=== PATIENT | female | born 1970 | race Two or more races ===

== ENCOUNTER 2019-12-01 11:10 | Inpatient (IN) | payer MEDICAID, OTHER ==
[~2019-12-01] VITALS: Ht 154.9 cm; Wt 74.5 kg
[2019-12-01] MEDS ORDERED: SODIUM CHLORIDE 0.9% 1,000 ML IV ONE (11:32)
[2019-12-01] MEDS ORDERED: ASPirin 81 mg TAB PO ONE (11:45)
[2019-12-01] MEDS ORDERED: NITROGLYCERIN 0.4 MG SL TAB SL ONE (11:45)
[2019-12-01 13:51] LABS: Basophils # (auto) 0 uL; Eosinophils # (auto) 0.3 uL; Monocytes # (auto) 0.5 uL; Nucleated Red Blood Cells % 0.1 %
[2019-12-01 13:52] LABS: Basophils % (auto) 0.4 % (0.0-2.0); Eosinophils % (auto) 3.6 % (0.0-7.0); Hematocrit 42.4 % (36.0-46.0); Hemoglobin 13.9 g/dL (12.2-16.2); Lymphocytes # (auto) 2.7 uL; Lymphocytes % (auto) 36.3 % (10.0-50.0); Mean Corpuscular Hemoglobin 26.4 pg (28.0-32.0); Mean Corpuscular Hgb Conc. 32.9 g/dL (32.0-36.0); Mean Corpuscular Volume 80.4 fL (80.0-100.0); Monocytes % (auto) 6.7 % (0.0-12.0); Neutrophils # (auto) 3.9 uL; Platelet Count (auto) 296 10^3/uL (140-450); Red Blood Cells 5.27 10^6/uL (4.0-5.20); Red Cell Distribution Width 15.7 % (11.8-14.3); White Blood Cell 7.4 10^3/uL (4.4-10.8)
[2019-12-01 14:10] LABS: Albumin 3.8 g/dL (3.4-5.0); Calcium 8.6 mg/dL (8.5-10.1); Potassium 3.7 mmol/L (3.5-5.1)
[2019-12-01 14:13] LABS: BUN/Creatinine Ratio 15.4
[2019-12-01 14:17] LABS: Bilirubin, Total 0.3 mg/dL (0.2-1.0); Total Protein 8.5 g/dL (6.4-8.2)
[2019-12-01] MEDS ORDERED: ENOXAPARIN SOD 80 MG/0.8ML SYRINGE SC ONE (14:45)
[2019-12-01] MEDS ORDERED: LACTULOSE 20Gm/30ML SOLN PO PRN (18:45)
[2019-12-01] MEDS ORDERED: ACETAMINOPHEN 500 MG TAB PO PRN (18:45)
[2019-12-01] MEDS ORDERED: NITROGLYCERIN 0.4 MG SL TAB SL PRN (18:45)
[2019-12-01] MEDS ORDERED: MORPHINE SULF INJ 2 MG/ML SYRINGE 1ML IV PRN (18:45)
[2019-12-01] MEDS ORDERED: TEMAZEPAM 15 MG CAP PO PRN (18:45)
[2019-12-01] MEDS ORDERED: DEXTROSE (50%) 50ML SYRG IV PRN (18:45)
[2019-12-01] MEDS ORDERED: PROMETHAZINE HCL 25 MG/ML 1ML IV PRN (18:45)
[2019-12-01] MEDS ORDERED: traMADol HCL 50 MG TAB PO PRN (18:45)
[2019-12-01] MEDS ORDERED: LABETALOL HCL 5 MG/ML ML 20ML VIAL IV PRN (18:45)
[2019-12-01] MEDS: SODIUM CHLORIDE 0.9% 1,000 ML IV SCH (18:47)
--- NOTE | 2019-12-01 20:15 | NUR ---
received pt from er nurse poc reviewed
--- NOTE | 2019-12-01 21:35 | NUR ---
family at bedside poc reviewed, pt needs iranian interpretor
[2019-12-01] MEDS: ATORVASTATIN 20 MG TAB PO SCH (21:54)
[2019-12-01] MEDS: METOPROLOL TARTRATE 25 MG TAB PO SCH (21:58)
[2019-12-01] MEDS ORDERED: METF850T PO (21:58)
[2019-12-01 22:00] VITALS: BP 118/68
[2019-12-01] MEDS: ENOXAPARIN SOD 80 MG/0.8ML SYRINGE SC SCH (22:00)
[2019-12-01] MEDS: InsuLIN REG 1unit/0.01ml Soln (100units/ml) SC SCH (22:00)
[2019-12-01] MEDS: ACCU-CHEK COMFORT CURVE STRIP VI SCH (22:23)
--- NOTE | 2019-12-02 01:00 | NUR ---
resting with eyes closed resp even and unlabored
--- NOTE | 2019-12-02 04:08 | NUR ---
resting comfortable with eyes closed call light within reach
[2019-12-02 05:30] VITALS: BP 107/66
[2019-12-02] MEDS: ACCU-CHEK COMFORT CURVE STRIP VI SCH ×4 (06:34→21:34)
[2019-12-02] MEDS: InsuLIN REG 1unit/0.01ml Soln (100units/ml) SC SCH ×4 (06:36→21:34)
--- NOTE | 2019-12-02 07:35 | NUR ---
REPORT GIVEN TO AM NURSE POC REVIEWED
--- NOTE | 2019-12-02 08:00 | NUR ---
AWAKE ALERT ORIENTED TIMES 4 DENIES ANY CHEST PAIN AT THIS TIME.
[2019-12-02] MEDS: SODIUM CHLORIDE 0.9% 1,000 ML IV SCH ×2 (08:06→21:30)
[2019-12-02 08:24] LABS: Urine Bacteria FEW /hpf (None Seen); Urine Blood Negative /uL (Negative); Urine Specific Gravity 1.012 (1.001-1.035); Urine WBC <1 /hpf (0 - 5)
[2019-12-02 08:39] LABS: Alcohol, Urine < 3.0 mg/dL (0-5); Amphetamine Screen, Urine NEGATIVE (NEGATIVE); Barbiturate Scree,Urine NEGATIVE (NEGATIVE); Benzodiazephine Screen, Urine NEGATIVE (NEGATIVE); Cannabinoid Screen, Urine NEGATIVE (NEGATIVE); Cocaine Screen, Urine NEGATIVE (NEGATIVE); Opiate Scree,Urine NEGATIVE (NEGATIVE); Phencyclidine Screen, Urine NEGATIVE (NEGATIVE)
[2019-12-02 08:55] LABS: Cholesterol 135 mg/dL (< 200); HDL Cholesterol 49 mg/dL (40-59); LDL Cholesterol 82 mg/dL (< 100); Triglycerides 88 mg/dL (< 150)
[2019-12-02] MEDS: METOPROLOL TARTRATE 25 MG TAB PO SCH ×2 (08:58→21:34)
[2019-12-02 09:00] VITALS: BP 111/65
[2019-12-02] MEDS: NITROGLYCERIN 0.2MG/HR TOPICAL PATCH TD SCH (09:51)
[2019-12-02] MEDS: ASPirin 81 mg TAB PO SCH (09:51)
--- NOTE | 2019-12-02 10:06 | NUR ---
PATIENT STATED FEELING SIMILAR SYMPTOMS THAT BROUGHT HER TO THE HOSPITAL YESTERDAY. SOME NUMBNESS TO RIGHT LOWER EXTREMITY AND PALPITATION. VITAL SIGNS STABLE. FAMILY AT BEDSIDE.
[2019-12-02] MEDS: ENOXAPARIN SOD 80 MG/0.8ML SYRINGE SC SCH ×2 (10:47→21:34)
--- NOTE | 2019-12-02 11:04 | NUR ---
DR Dash AVILEZ AT BEDSIDE DISCUSSED PLAN OF CARE WITH FAMILY AND PATIENT. NEUROLOGY CONSULT ORDERED WELL ECHOCARDIOGRAM.
[2019-12-02 13:00] VITALS: BP 143/71
--- NOTE | 2019-12-02 13:20 | NUR ---
DENIES ANY PAIN AT THIS. FAMILY AT BEDSIDE. AWAITING NEUROLOGY CONSULT.
[2019-12-02 17:59] VITALS: BP 114/74
--- NOTE | 2019-12-02 19:44 | NUR ---
PATIENT COMPLAINING OF CHEST PAIN PATIENT STATES PAIN CAME ON SUDDENLY. PAIN AT TIME IS A 4/10. PATIENT PLACED ON SUPPLEMENTAL OXYGEN. PATIENT STATES AN IMMEDIATE DECREASE IN PAIN. PATIENT ALSO GIVEN PAIN MEDICINE AND AN EKG PERFORMED. EKG SHOWS NORMAL SINUS RHYTHM AND PATIENT STATES PAIN IS GONE. WILL CONTINUE TO MONITOR. Addendum: 12/02/19 at 2052 by MYRNA ESCOBAR RN HOSPITALIST NOTIFIED. TROPONIN NEGATIVE. EKG NORMAL. SPRAY DRIER ON BOARD. PATIENT'S VITALS AT TIME OF PAIN WAS BP 133/79, HR 87, RR 16, TEMP 98.8. NO NEW ORDERS AT THIS TIME. WILL CONTINUE TO MONITOR.
--- NOTE | 2019-12-02 20:00 | NUR ---
Opening Shift Note Assumed care of patient, awake and alert. No S/S of distress/SOB or pain. Instructed on POC and to call for assist PRN, will continue to monitor for changes Q1hr and PRN.
[2019-12-02] MEDS ORDERED: LORazepam 2MG/ML-1ML VIAL IV PRN (20:30)
[2019-12-02] MEDS: ATORVASTATIN 20 MG TAB PO SCH (21:33)
[2019-12-02 22:51] VITALS: BP 126/66
--- NOTE | 2019-12-02 23:46 | NUR ---
MD CRUZ AT BEDSIDE
[2019-12-03 05:00] VITALS: BP 103/58
[2019-12-03] MEDS: ACCU-CHEK COMFORT CURVE STRIP VI SCH ×4 (06:18→22:06)
[2019-12-03] MEDS: InsuLIN REG 1unit/0.01ml Soln (100units/ml) SC SCH ×4 (06:18→22:06)
[2019-12-03] MEDS: SODIUM CHLORIDE 0.9% 1,000 ML IV SCH ×2 (07:45→23:51)
[2019-12-03 09:00] VITALS: BP 116/71
[2019-12-03] MEDS: ASPirin 81 mg TAB PO SCH (10:51)
[2019-12-03] MEDS: NITROGLYCERIN 0.2MG/HR TOPICAL PATCH TD SCH (10:51)
[2019-12-03] MEDS: ENOXAPARIN SOD 80 MG/0.8ML SYRINGE SC SCH ×2 (10:52→22:06)
[2019-12-03] MEDS: METOPROLOL TARTRATE 25 MG TAB PO SCH ×2 (10:52→22:00)
--- NOTE | 2019-12-03 12:12 | NUR ---
EEG- Electroencephalogram completed on 12/03/2019.
[2019-12-03 13:00] VITALS: BP 128/66
[2019-12-03 17:00] VITALS: BP 104/58
--- NOTE | 2019-12-03 18:18 | NUR ---
Cardio at bedside Bueno at bedside, aware of patient's status. Awaiting cardiolite tomorrow. No new orders received. Cont care
--- NOTE | 2019-12-03 19:00 | NUR ---
Patient care endorsed endorsed care to [place]. Patient resting comfortably in bed in no acute distress. Family at bedside. Call light within reach
[2019-12-03 21:36] VITALS: BP 112/59
[2019-12-03] MEDS: ATORVASTATIN 20 MG TAB PO SCH (22:05)
--- NOTE | 2019-12-04 04:23 | NUR ---
IV insertion IV access obtained, via clean sterile technique by inserting 22 gauge catheter at RIGHT FOREARM after 1 attempt(s). IV secured properly. No trauma to site. Patient tolerated well.
[2019-12-04 05:04] VITALS: BP 101/51
[2019-12-04] MEDS: ACCU-CHEK COMFORT CURVE STRIP VI SCH ×4 (06:14→22:30)
[2019-12-04] MEDS: InsuLIN REG 1unit/0.01ml Soln (100units/ml) SC SCH ×4 (06:14→22:27)
--- NOTE | 2019-12-04 07:35 | NUR ---
Opening Shift Note Assumed care of patient, awake and alert. No S/S of distress/SOB or chest pain reported at this time. Instructed on POC and to call for assist PRN, call light within reach, will continue to monitor for changes Q1hr and PRN.
--- NOTE | 2019-12-04 07:37 | NUR ---
CHEST PAIN PT COMPLAINING OF CHEST PAIN 06/20 RADIATING TO JAW, EKG DONE SHOWING SINUS RHYTHM, BP 154/95MMHG, HR 108, RR 20, NITROGLYCERIN SUBLINGUAL GIVEN, WILL CONTINUE TO MONITOR. Addendum: 12/04/19 at 1952 by Roseanne Tate RN WRONG TIME 1936 NOTE.
[2019-12-04 08:00] VITALS: BP 125/65
[2019-12-04] MEDS ORDERED: ADENOSINE 60 MG in GIVE UN-DILUTED 0 ML IV STA (08:29)
--- NOTE | 2019-12-04 09:15 | NUR ---
PT OFF UNIT/STRESS TEST PT TAKEN VIA WHEELCHAIR, NO DISTRESS NOTED AT THIS TIME, IV PATENT TO RIGHT AND LEFT FA
[2019-12-04 09:21] VITALS: BP 132/80
[2019-12-04] MEDS: ASPirin 81 mg TAB PO SCH (11:19)
[2019-12-04] MEDS: METOPROLOL TARTRATE 25 MG TAB PO SCH ×2 (11:19→22:29)
[2019-12-04] MEDS: ENOXAPARIN SOD 80 MG/0.8ML SYRINGE SC SCH ×2 (11:20→22:27)
[2019-12-04] MEDS: NITROGLYCERIN 0.2MG/HR TOPICAL PATCH TD SCH (11:20)
[2019-12-04 12:00] VITALS: BP 124/63
[2019-12-04] MEDS: SODIUM CHLORIDE 0.9% 1,000 ML IV SCH (13:11)
--- NOTE | 2019-12-04 13:30 | NUR ---
IV removal to right FA IV DC'd with clean sterile technique, catheter fully intact. Pressure dressing applied to site. Patient tolerated well.
[2019-12-04 16:55] VITALS: BP 113/66
--- NOTE | 2019-12-04 19:37 | NUR ---
CHEST PAIN PT COMPLAINING OF CHEST PAIN 9/10 RADIATING TO JAW, EKG DONE SHOWING SINUS RHYTHM, BP 154/95MMHG, HR 108, RR 20, NITROGLYCERIN SUBLINGUAL GIVEN, WILL CONTINUE TO MONITOR.
--- NOTE | 2019-12-04 19:54 | NUR ---
PT STATED NO CHEST PAIN AT THIS TIME BP 149/85MMHG, HR 92, O2 SAT 98%. WILL CONTINUE TO MONITOR.
[2019-12-04 22:00] VITALS: BP 124/68
[2019-12-04] MEDS: ATORVASTATIN 20 MG TAB PO SCH (22:27)
--- NOTE | 2019-12-04 23:55 | NUR ---
pt seen by Dr. Ganga Bueno, pt made aware pt will be scheduled for [facility] on Wednesday, pt verbalized understanding.
[2019-12-05 05:00] VITALS: BP 114/58
[2019-12-05] MEDS: InsuLIN REG 1unit/0.01ml Soln (100units/ml) SC SCH ×5 (06:28→21:58)
[2019-12-05] MEDS: ACCU-CHEK COMFORT CURVE STRIP VI SCH ×5 (06:28→21:59)
--- NOTE | 2019-12-05 07:09 | NUR ---
Opening Shift Note Assumed care of patient, awake, alert and oriented X 4. No S/S of distress/SOB or pain. Bed is in lowest position, locked, with 2 side rails up, and call moore is within reach. Instructed on POC and to call for assist PRN, will continue to monitor for changes Q1hr and PRN
[2019-12-05 08:00] VITALS: BP 111/66
[2019-12-05] MEDS: ENOXAPARIN SOD 80 MG/0.8ML SYRINGE SC SCH ×2 (09:35→21:58)
[2019-12-05] MEDS: ASPirin 81 mg TAB PO SCH (09:35)
[2019-12-05] MEDS: METOPROLOL TARTRATE 25 MG TAB PO SCH ×2 (09:35→21:58)
[2019-12-05] MEDS: NITROGLYCERIN 0.2MG/HR TOPICAL PATCH TD SCH (09:36)
[2019-12-05 10:59] LABS: Basophils # (auto) 0 uL; Eosinophils # (auto) 0.3 uL; Hematocrit 37.8 % (36.0-46.0); Monocytes # (auto) 0.5 uL; Red Blood Cells 4.65 10^6/uL (4.0-5.20); White Blood Cell 6.6 10^3/uL (4.4-10.8)
[2019-12-05 11:01] LABS: Basophils % (auto) 0.2 % (0.0-2.0); Hemoglobin 12.4 g/dL (12.2-16.2); Lymphocytes # (auto) 2.1 uL; Lymphocytes % (auto) 32.4 % (10.0-50.0); Mean Corpuscular Hemoglobin 26.6 pg (28.0-32.0); Mean Corpuscular Hgb Conc. 32.7 g/dL (32.0-36.0); Mean Corpuscular Volume 81.2 fL (80.0-100.0); Monocytes % (auto) 7.5 % (0.0-12.0); Neutrophils # (auto) 3.7 uL; Neutrophils % (auto) 55.9 % (37.0-80.0); Nucleated Red Blood Cells % 0.1 %; Platelet Count (auto) 218 10^3/uL (140-450); Red Cell Distribution Width 15.2 % (11.8-14.3)
[2019-12-05 11:20] LABS: INR 1.06 (0.9-1.15); Partial Thromboplastin Time 31.3 sec (23.64-32.05)
[2019-12-05 11:21] LABS: BUN/Creatinine Ratio 18.2; Calcium 8.6 mg/dL (8.5-10.1)
[2019-12-05 12:00] VITALS: BP 104/67
--- NOTE | 2019-12-05 13:41 | NUR ---
NUTRITION ASSESSMENT NOTES Please refer to link notes of nutrition screen form filed under the intervention section of the plan of care for further details. Est. Needs: 1500 kcal to 1900 kcal (20-25 kcal/kgBW), 60 gms to 75 gms pro (0.8-1.0 gms/kgBW). Will continue to monitor pertinent labs and reassess nutrient needs prn Thank you. Addendum: 12/05/19 at [address] Amended: Links added.
[2019-12-05 17:00] VITALS: BP 115/57
[2019-12-05 21:38] VITALS: BP 112/62
[2019-12-05] MEDS: ATORVASTATIN 20 MG TAB PO SCH (21:58)
--- NOTE | 2019-12-05 23:35 | NUR ---
ROUNDED ON PT PT SLEEPING NO PAIN NOTED NO RESPIRATORY DISTRESS NOTED
[2019-12-06 05:05] VITALS: BP 100/65
[2019-12-06] MEDS: InsuLIN REG 1unit/0.01ml Soln (100units/ml) SC SCH ×2 (07:00→11:10)
--- NOTE | 2019-12-06 07:00 | NUR ---
OPENING SHIFT NOTE ASSUMED CARE OF PATIENT AWAKE AND ALERT. NO S/S OF DISTRESS NOTED OR COMPLAINTS OF PAIN. PATIENT UPDATED ON POC FOR THE DAY AND ALL QUESTIONS ANSWERED. BED IS IN LOWEST, LOCKED POSITION WITH SIDE RAILS UP X2 AND CALL LIGHT WITHIN REACH. WILL CONTINUE TO MONITOR Q1H AND PRN.
--- NOTE | 2019-12-06 07:20 | NUR ---
AVIATION MAINTENANCE TECHNICIAN RECEIVED CALL FROM AVIATION MAINTENANCE TECHNICIAN ASKING TO BRING PATIENT DOWN. PATIENT AND CHART TAKEN DOWN TO AVIATION MAINTENANCE TECHNICIAN WITHOUT INCIDENT.
[2019-12-06] MEDS ORDERED: LIDOCAINE 2%HCL (LOCAL ANESTH.) INJ 20ML MDV ONE ×2 (07:22→07:23)
[2019-12-06] MEDS ORDERED: HEPARIN IN NS 1000Units/500mL 1,500 ML ONE (07:22)
[2019-12-06] MEDS ORDERED: IODIXANOL 320MG/ML 100ML BTL IV ONE (07:22)
[2019-12-06] MEDS ORDERED: ANGIOMAX 250 MG VIAL IV ONE (08:02)
[2019-12-06] MEDS ORDERED: HEPARIN SODIUM (PORCINE) 5000 UNITS/ML 1ML VIAL ONE (08:02)
[2019-12-06] MEDS ORDERED: VERAPAMIL 2.5MG/ML INJ 2ML VIAL IV ONE (08:02)
[2019-12-06] MEDS ORDERED: fentaNYL CITRATE 100 MCG/2 ML VL ONE (08:02)
[2019-12-06] MEDS ORDERED: SODIUM CHL 0.9% 50 ML ONE (08:03)
[2019-12-06] MEDS ORDERED: MIDAZOLAM HCL 1MG/1ML-2 ML VIAL ONE (08:03)
[2019-12-06] MEDS ORDERED: EPTIFIBATIDE INJ (2MG/ML) 10ML VIAL IV ONE (08:55)
[2019-12-06] MEDS ORDERED: ASPirin 81 mg TAB ONE (09:02)
[2019-12-06] MEDS ORDERED: TICAGRELOR 90 MG TAB ONE (09:03)
[2019-12-06] MEDS: ASPirin 81 mg TAB PO SCH (10:00)
[2019-12-06] MEDS: METOPROLOL TARTRATE 25 MG TAB PO SCH (10:00)
[2019-12-06] MEDS: NITROGLYCERIN 0.2MG/HR TOPICAL PATCH TD SCH (10:00)
[2019-12-06] MEDS: ACCU-CHEK COMFORT CURVE STRIP VI SCH ×2 (10:21→11:11)
--- NOTE | 2019-12-06 10:50 | NUR ---
BACK TO UNIT PATIENT BROUGHT BACK TO UNIT BY AFTER SCHOOL TEACHER STAFF. PATIENT PLACED ON TELEMETRY MONITORING AND BED ALARM ON FOR SAFETY. RIGHT WRIST VASC BAND ASSESSED AND 2ML AIR TAKEN OUT. NO OOZING NOTED. WILL CONTINUE TO MONITOR.
[2019-12-06 11:12] VITALS: BP 113/66
--- NOTE | 2019-12-06 12:32 | NUR ---
Nutrition Assessment Notes Please refer to link for full assessment notes. Est energy needs: 0095-3070 kcals (17-20 kcal/kgBW) Est protein needs: 0.8-1.0 gms/day (0.8-1.0 gm/kgAdjBW) Will continue to monitor and reassess prn. Addendum: 12/06/19 at [address] Amended: Links added.
[2019-12-06 12:51] VITALS: BP 106/66
[2019-12-06 17:00] VITALS: BP 116/59
--- NOTE | 2019-12-06 17:47 | NUR ---
Discharge instructions given as ordered. Encourage to follow up with PMD as instructed. All questions and concerns addressed. Patient verbalized understanding. Medication reconciliation form completed and copy given to patient. Home medications held in Pharmacy returned to patient, and needed vaccines given. IV removed with catheter intact, pressure dressing applied, christiansen catheter removed. Telemetry unit returned to ICU. Patient taken to vehicle via wheelchair with all personal belongings, accompanied by staff and family member. No distress noted at time of departure.
[2019-12-06] MEDS ORDERED: TICAGRELOR 90 MG TAB PO SCH (22:00)
== END 2019-12-06 17:42 | disposition home or self-care (01) | DRG 174 ==
LOC: ER 11:10 → EDBD 11:10 → TELE 11:11 → TELE-WESTW 19:19
PROVIDERS: ADMIT Internal Medicine; ATTEND Family Medicine
PROC: 027034Z Dilation of Coronary Artery, One Artery with Drug-eluting Intraluminal Device, Percutaneous Approach (ICD-10-PCS; principal; 2019-12-06)
PROC: B241ZZ3 Ultrasonography of Multiple Coronary Arteries, Intravascular (ICD-10-PCS; 2019-12-06)
PROC: 03HY32Z Insertion of Monitoring Device into Upper Artery, Percutaneous Approach (ICD-10-PCS; 2019-12-06)
PROC: 3E073PZ Introduction of Platelet Inhibitor into Coronary Artery, Percutaneous Approach (ICD-10-PCS; 2019-12-06)
PROC: 4A023N7 Measurement of Cardiac Sampling and Pressure, Left Heart, Percutaneous Approach (ICD-10-PCS; 2019-12-06)
PROC: B2151ZZ Fluoroscopy of Left Heart using Low Osmolar Contrast (ICD-10-PCS; 2019-12-06)
PROC: 4A023N7 Measurement of Cardiac Sampling and Pressure, Left Heart, Percutaneous Approach (ICD-10-PCS; 2019-12-06)
PROC: B2151ZZ Fluoroscopy of Left Heart using Low Osmolar Contrast (ICD-10-PCS; 2019-12-06)
DX: I21.4 Non-ST elevation (NSTEMI) myocardial infarction (principal); E11.40 Type 2 diabetes mellitus with diabetic neuropathy, unspecified; G45.9 Transient cerebral ischemic attack, unspecified; E11.65 Type 2 diabetes mellitus with hyperglycemia; F17.200 Nicotine dependence, unspecified, uncomplicated; I10 Essential (primary) hypertension; I25.10 Atherosclerotic heart disease of native coronary artery without angina pectoris; Z79.82 Long term (current) use of aspirin; Z79.899 Other long term (current) drug therapy; Z83.3 Family history of diabetes mellitus; Z88.1 Allergy status to other antibiotic agents
CPT/HCPCS: 36415; 70450; 70551; 71046; 78452; 80048; 80053; 80061; 80307; 81001; 82550; 82962; 83036; 84443; 84484; 85025; 85379; 85610; 85652; 85730; 86141; 86850; 86900; 86901; 92928; 92978; 92979; 93005; 93017; 93306; 93458; 93886; 93926; 95819; 96360; 96372; 99152; 99153; C1874; G0378; J0153; J1815; J2250; Q9967

== ENCOUNTER → 2020-04-13 | Emergency (ER) | payer MEDICAID ==
[~2020-04-13] VITALS: Ht 154.9 cm; Wt 80.3 kg
[~2020-04-13] MED LIST: METF850T PO; POTASSIUM EFFERVESENT TAB 25 MEQ PO ONE
[2020-04-13 01:56] LABS: Basophils # (auto) 0 10 ^3/uL (0-0.2); Eosinophils # (auto) 0.2 10 ^3/uL (0-0.8); Eosinophils % (auto) 2.4 % (0.0-7.0); Hemoglobin 10.6 g/dL (12.2-16.2); Mean Corpuscular Hemoglobin 23.2 pg (28.0-32.0); Monocytes # (auto) 0.6 10 ^3/uL (0-1.3); Neutrophils # (auto) 6.3 10 ^3/uL (1.6-8.6); Red Blood Cells 4.59 10^6/uL (4.0-5.20); White Blood Cell 9.1 10^3/uL (4.4-10.8)
[2020-04-13 01:57] LABS: Basophils % (auto) 0.3 % (0.0-2.0); Hematocrit 33.4 % (36.0-46.0); Lymphocytes % (auto) 21.5 % (10.0-50.0); Mean Corpuscular Hgb Conc. 31.8 g/dL (32.0-36.0); Mean Corpuscular Volume 72.8 fL (80.0-100.0); Monocytes % (auto) 6.8 % (0.0-12.0); Nucleated Red Blood Cells % 0.1 %; Platelet Count (auto) 321 10^3/uL (140-450); Red Cell Distribution Width 15.2 % (11.8-14.3)
[2020-04-13 02:17] LABS: Albumin 3.9 g/dL (3.4-5.0); Anion Gap 4 (5-15); Blood Urea Nitrogen 10 mg/dL (7-18); Calcium 8.7 mg/dL (8.5-10.1); Carbon Dioxide 27 mmol/L (21-32); Chloride 107 mmol/L (98-107); Glucose 211 mg/dL (74-106); Magnesium 2.3 mg/dL (1.6-2.6); Potassium 3.4 mmol/L (3.5-5.1); Sodium 138 mmol/L (136-145)
[2020-04-13 02:20] LABS: Alanine Aminotransferase 23 U/L (13-56); Aspartate Aminotransferase 15 U/L (15-37); BUN/Creatinine Ratio 14.1; GFR African American 111 mL/min; GFR Non-African American 92 mL/min
[2020-04-13 02:23] LABS: INR 1.04 (0.9-1.15); Partial Thromboplastin Time 25.6 sec (23.64-32.05)
[2020-04-13 02:24] LABS: Alkaline Phosphatase 88 U/L (45-117)
[2020-04-13 02:25] LABS: Bilirubin, Total 0.3 mg/dL (0.2-1.0); Total Protein 8.3 g/dL (6.4-8.2)
[2020-04-13 13:00] VITALS: BP 119/67
== END | disposition home or self-care (01) ==
LOC: ER 00:13
DX: R07.89 Other chest pain (principal); F41.9 Anxiety disorder, unspecified; E11.65 Type 2 diabetes mellitus with hyperglycemia; E87.6 Hypokalemia; D64.9 Anemia, unspecified; E78.5 Hyperlipidemia, unspecified; Z98.51 Tubal ligation status
CPT/HCPCS: 36415; 71045; 80053; 81002; 82962; 83735; 83880; 84484; 85025; 85379; 85610; 85730; 93005